=== PATIENT | female | born 1985 | race American Indian/Alaskan Native ===

== ENCOUNTER 2018-04-07 08:12 | Emergency (ER) | payer OTHER ==
[2018-04-07 08:20] VITALS: BP 125/81
--- NOTE | 2018-04-07 08:49 | Emergency Department Report ---
ED Abdominal Pain HPI - General Chief Complaint: Abdominal Pain Stated Complaint: STOMACH PAIN Time Seen by Provider: 04/07/18 08:35 Source: patient Mode of arrival: Ambulatory Limitations: No Limitations - History of Present Illness Initial Comments: Patient is a 32-year-old female who comes to the ER with complaints of abdominal pain. She has a history of colitis and ovarian cyst. She states that her colitis was diagnosed years ago. Her ovarian cyst was diagnosed recently at [place]. She describes her pain as crampy and diffuse but more concentrated on her left side. She states that she had a bowel movement earlier today that had blood in it but she states that that is normal for her due to her colitis. Patient also has abdominal hernia. Past surgical history of appendectomy and ectopic . -: Gradual, days(s) Location: diffuse Severity scale (0 -10): 6 Associated Symptoms: nausea, vomiting, diarrhea - Related Data Allergies Allergy/AdvReac Type Severity Reaction Status Date / Time metronidazole [From Flagyl] Allergy Unknown Verified 04/07/18 08:13 ED Review of Systems ROS: Stated complaint: STOMACH PAIN Other details as noted in HPI Comment: All other systems reviewed and negative Constitutional: denies: chills Eyes: denies: eye pain ENT: denies: throat pain Respiratory: denies: cough Gastrointestinal: as per HPI, abdominal pain, nausea, vomiting, diarrhea Genitourinary: denies: dysuria Musculoskeletal: denies: back pain Skin: denies: lesions Neurological: denies: weakness Psychiatric: denies: anxiety Hematological/Lymphatic: denies: as per HPI ED Past Medical Hx - Past Medical History Previous Medical History?: Yes Additional medical history: Crohns, hernia, ovarian cyst - Surgical History Past Surgical History?: Yes Additional Surgical History: Tubal - Social History Smoking Status: Current Every Day Smoker Substance Use Type: Alcohol ED Physical Exam - General Limitations: No Limitations General appearance: alert - Head Head exam: Present: atraumatic - Eye Eye exam: Present: normal appearance, PERRL - ENT ENT exam: Present: mucous membranes moist - Neck Neck exam: Present: normal inspection - Respiratory Respiratory exam: Present: normal lung sounds bilaterally - Cardiovascular Cardiovascular Exam: Present: regular rate - GI/Abdominal GI/Abdominal exam: Present: soft, tenderness, normal bowel sounds - Rectal Rectal exam: Present: deferred - Extremities Exam Extremities exam: Present: normal inspection, full ROM - Back Exam Back exam: Present: normal inspection, full ROM - Neurological Exam Neurological exam: Present: alert, oriented X3, CN II-XII intact ED Course Vital Signs 04/07/18 08:17 Temperature 97.8 F Pulse Rate 90 Respiratory 18 Rate Blood Pressure 125/81 O2 Sat by Pulse 100 Oximetry ED Medical Decision Making - Lab Data Result diagrams: 04/07/18 09:14 04/07/18 09:14 - Radiology Data Radiology results: report reviewed, image reviewed - Medical Decision Making labs and CT noted pt left prior to CT resulting because she had to get her children from school Labs 04/07/18 04/07/18 04/07/18 08:29 09:14 09:14 WBC 8.9 RBC 4.35 Hgb 11.3 Hct 33.3 MCV 77 L MCH 26 L MCHC 34 RDW 16.0 H Plt Count 358 Sodium 138 Potassium 4.1 Chloride 102.0 Carbon Dioxide 23 Anion Gap 17 BUN 13 Creatinine 0.6 L Estimated GFR > 60 BUN/Creatinine Ratio 22 Glucose 94 Calcium 8.9 Total Bilirubin 0.30 AST 17 ALT 21 Alkaline Phosphatase 72 Total Protein 6.7 Albumin 4.0 Albumin/Globulin Ratio 1.5 Lipase 28 Urine Color Yellow Urine Turbidity Clear Urine pH 6.0 Ur Specific [place] 1.023 Urine Protein <15 mg/dl Urine Glucose (UA) Neg Urine Ketones Neg Urine Blood Neg Urine Nitrite Neg Ur Reducing Substances Not Reportable Urine Bilirubin Neg Urine Ictotest Not Reportable Urine Urobilinogen 2.0 Ur Leukocyte Esterase Neg Urine WBC (Auto) 1.0 Urine RBC (Auto) 2.0 U Epithel Cells (Auto) 4.0 Urine Mucus Few Urine HCG, Qual Negative Critical care attestation.: If time is entered above; I have spent that time in minutes in the direct care of this critically ill patient, excluding procedure time. ED Disposition Clinical Impression: Abdominal pain Disposition: DC-07 LEFT AGAINST MED ADVICE Is pt being admited?: No Does the pt Need Aspirin: No Condition: Undetermined Referrals: HERMINIO ORTIZ MD [Primary Care Provider] - 3-5 Days
[2018-04-07] MEDS ORDERED: ZOFRAN IV ONE (08:50)
[2018-04-07 08:51] LABS: HCG Qualitative,Urine Negative (Negative)
[2018-04-07 08:52] LABS: Bilirubin,Urine NEG (Negative); Blood,Urine NEG (Negative); Color,Urine Yellow (Yellow); Mucus,Urine FEW /HPF; Protein,Urine <15 mg/dL mg/dL (Negative)
[2018-04-07] MEDS ORDERED: NACL 0.9% 1000 ML 1,000 ML IV ONE (08:57)
[2018-04-07 09:30] LABS: Hematocrit 33.3 % (30.3-42.9); Hemoglobin 11.3 gm/dl (10.1-14.3); Mean Corpuscular HGB Conc 34 % (30-34); Mean Corpuscular Volume 77 fl (79-97); Platelet Count 358 K/mm3 (140-440); Red Blood Count 4.35 M/mm3 (3.65-5.03)
[2018-04-07 09:41] LABS: Alanine Aminotransferase 21 units/L (7-56); BUN/Creatinine Ratio 22; Blood Urea Nitrogen 13 mg/dL (7-17); Calcium 8.9 mg/dL (8.4-10.2); Hemolysis Index 18
[2018-04-07] MEDS ORDERED: TORADOL IV ONE (10:32)
--- NOTE | 2018-04-07 14:12 | Cat Scan Report ---
FINAL REPORT EXAM: CT ABDOMEN PELVIS W CON HISTORY: Crohn's AND OV CYST TECHNIQUE: CT of the abdomen and pelvis with IV contrast. Coronal and sagittal reconstructed imaging provided. PRIORS: None currently available. FINDINGS: ABDOMEN: Fatty liver. No suspicious enhancement or lesions. Gallbladder, stomach, spleen, pancreas, and adrenals are unremarkable. Kidneys: Symmetrical cortical enhancement and excretion. No hydronephrosis. No suspicious lesions. IVC is unremarkable. No aortic aneurysm or dissection. Mild aortic atherosclerotic disease. No periaortic or retroperitoneal mass or adenopathy. Prior appendectomy. Mide-[id number]-tgiwrtiv stool throughout the colon without obvious wall thickening or st randing. Terminal ileum is unremarkable. Small bowel loops are unremarkable. No obstructive pattern. No air-fluid levels. Mesentery is unremarkable. No free air. No free fluid. PELVIS: Prominent uterus. No distinct lesions. Bladder is unremarkable. There is no pelvic mass or adenopathy. Inguinal regions are unremarkable. Bones: No suspicious osseous lesions on this limited examination of the skeleton. Metastatic disease better evaluated with bone scan. IMPRESSION: Fatty liver. Prominent uterus may be related to a fibroid uterus. Otherwise, no acute findings.
== END 2018-04-07 12:38 | disposition left against medical advice (07) ==
LOC: ED 08:12
DX: R10.84 Generalized abdominal pain (principal); F17.200 Nicotine dependence, unspecified, uncomplicated
CPT/HCPCS: 36415; 74177; 80053; 81001; 81025; 83690; 85027; 96361; 96374; 96375; 99284; J1885; J2405; J7030; Q9967